=== PATIENT | male | born 1975 | race Two or more races ===

== ENCOUNTER 2021-06-21 01:02 | Emergency (ER) | payer OTHER ==
[~2021-06-21] VITALS: Ht 165.1 cm; Wt 68.0 kg
[2021-06-21] MEDS ORDERED: IV NS 0.9% 1,000 ML IV ONE (01:30)
--- NOTE | 2021-06-21 01:32 | NUR ---
RT CALLED BED 6
--- NOTE | 2021-06-21 01:35 | NUR ---
IV LINE ESTABLISHED AT RAC 20G, RT AT BEDSIDE,BLOOD DRAWN AND SENT TO LAB
[2021-06-21 01:48] LABS: BASOPHILS % (AUTO) 0.3 % (0.0-2.0); EOSINOPHILS % (AUTO) 1.4 % (0.0-6.0); HEMATOCRIT 37 % (39-51); HEMOGLOBIN 12.3 g/dL (13.5-17.5); LYMPHOCYTES # (AUTO) 1.5 K/uL (0.8-4.8); LYMPHOCYTES % (AUTO) 31.2 % (20.0-44.0); MEAN CORPUSCULAR HGB CONC 33 g/dl (31.0-36.0); MEAN CORPUSCULAR VOLUME 89 fL (80-96); MONOCYTES # (AUTO) 0.3 K/uL (0.1-1.30); MONOCYTES % (AUTO) 5.5 % (2.0-12.0); NEUTROPHILS # (AUTO) 2.9 K/uL (1.8-8.9); NEUTROPHILS % (AUTO) 61.6 % (43.0-81.0); PLATELET COUNT (AUTO) 378 K/uL (150-450); RED BLOOD CELL COUNT(AUTO) 4.19 MIL/uL (4.5-6.0); WHITE BLOOD COUNT (AUTO) 4.7 K/uL (4.3-11.0)
[2021-06-21 01:52] LABS: CALCIUM, SERUM 8.4 mg/dL (8.5-10.1); CARBON DIOXIDE 25 mmol/L (21-32); CHLORIDE 99 mmol/L (98-107); CREATININE 0.8 mg/dL (0.6-1.3); POTASSIUM 3.8 mmol/L (3.5-5.1); SODIUM SERUM 136 mmol/L (136-145); UREA NITROGEN, BLOOD 11 mg/dL (7-18)
[2021-06-21 01:53] LABS: ABG OXYGEN SATURATION 91.3 % (92.0-98.5); ABG PCO2 37.7 mmHg (35.0-45.0); ABG PH 7.345 (7.350-7.450); ABG PO2 68.8 mmHg (75.0-100.0); COHb 0.6 % (0.5-1.5); O2Hb 90.8 % (94.0-97.0); SITE, ABG Other
[2021-06-21 01:58] LABS: GLUCOSE 383 mg/dL (74-106)
[2021-06-21] MEDS ORDERED: INSULIN REGULAR, HUMAN 100 UNIT/ML 10 ML VIAL IV ONE (02:30)
[2021-06-21] MEDS ORDERED: INSULIN REGULAR, HUMAN 100 UNIT/ML 10 ML VIAL ONE (02:37)
--- NOTE | 2021-06-21 03:12 | NUR ---
BS NOTED AT 178
--- NOTE | 2021-06-21 03:20 | NUR ---
Patient discharged to home in stable condition. Written and verbal after care instructions given. Patient verbalizes understanding of instruction.
[2021-06-21 03:34] VITALS: BP 134/79
== END 2021-06-21 03:00 | disposition home or self-care (01) ==
LOC: ER 01:12
DX: E11.65 Type 2 diabetes mellitus with hyperglycemia (principal)
CPT/HCPCS: 36415; 36600; 80048; 82010; 82803; 82962; 85025; 96360; 96372; 99283; J1815; J7030